=== PATIENT | male | born 1990 | race Caucasian/White ===

== ENCOUNTER 2024-04-16 10:00 | Inpatient (IN) | payer OTHER ==
--- NOTE | 2024-04-16 10:14 | ED ---
Extremity Problem HPI - General Source: patient, RN notes reviewed Mode of arrival: wheelchair Limitations: no limitations <Tia Jo - Last Filed: 04/16/24 10:16> <Kailee Schuler - Last Filed: 04/16/24 23:23> - General Chief complaint: Extremity Problem,Nontraumatic Stated complaint: R knee infection Time Seen by Provider: 04/16/24 10:12 - History of Present Illness Initial comments: Quick Note: This is a 33-year-old male who presents to the emergency department for a right knee infection. States that this started last week. He went to [facility] initially on 04/08 and was started on oral antibiotics. This did not improve and he went back on 04/12. He was admitted for IV antibiotics and had surgery on the knee. However, states that he did not like how they cared for him at [facility] and he left. States that the infection was positive for MRSA. Pain is continuing to get worse and he is hoping to be treated at this facility instead. (Tia Jo) Rich is a 33yo M with history of IV drug use who presents to the ER via private vehicle for evaluation of wound to the right knee. Patient was seen at [facility] last week and given PO antibiotics, infection worsened and he was readmitted, on 04/13 he underwent debridement and reports that he remained in the hospital for 16+ hours after the procedure but did not receive any pain medications or antibiotics so he left. Patient came to our hospital today for continued treatment, does not recall who the surgeon was that did the debridement but was told the infection is MRSA Outpatient chart reveals that the patient had surgical debridement by vascular surgeon Dr. Luna who recommended PICC line placement for long-term antibiotics. (Kailee Schuler) - Related Data Home Medications Medication Instructions Recorded Confirmed No Known Home Medications 04/16/24 04/16/24 Allergies Allergy/AdvReac Type Severity Reaction Status Date / Time Penicillins AdvReac Nausea & Verified 04/16/24 18:46 Vomiting Review of Systems ROS Other: All systems not noted in ROS Statement are negative. <Tia Jo - Last Filed: 04/16/24 10:16> ROS Other: All systems not noted in ROS Statement are negative. <Kailee Schuler - Last Filed: 04/16/24 23:23> ROS Statement: Those systems with pertinent positive or pertinent negative responses have been documented in the HPI. General Exam <Tia Jo - Last Filed: 04/16/24 10:16> <Kailee Schuler - Last Filed: 04/16/24 23:23> - General Exam Comments Initial Comments: Visual Physical Exam Vital signs reviewed General: Well-appearing, nontoxic, no acute distress. Head: Normocephalic, atraumatic Eyes: PERRLA, EOMI ENT: Airway patent Chest: Nonlabored breathing Skin: No visual rash, normal skin tone Neuro: Alert and oriented 3 Musculoskeletal: No gross abnormalities (Tia Jo) Physical Exam GENERAL: Patient is well-developed and well-nourished. Patient is nontoxic and well-hydrated and is in no distress. HENT: Normocephalic, Atraumatic. EYES: PERRL, EOMI PULMONARY: Unlabored respirations. CARDIOVASCULAR: RRR Warm and well perfused extremities ABDOMEN: Non-distended SKIN: There is a large open wound proximal and lateral to the patella no significant surrounding erythema induration or signs of cellulitis : Deferred NEUROLOGIC: Alert and oriented Normal speech MUSCULOSKELETAL: Moving all extremities with no apparent injury PSYCHIATRIC: No SI/HI (Kailee Schuler) Course Vital Signs 04/16/24 04/16/24 10:12 18:40 Temperature 98.1 F Pulse Rate 85 79 Respiratory 18 18 Rate Blood Pressure 119/75 111/67 O2 Sat by Pulse 99 95 Oximetry Medical Decision Making <Tia Jo - Last Filed: 04/16/24 10:16> - Lab Data Result diagrams: 04/16/24 10:52 04/16/24 10:52 <Kailee Schuler - Last Filed: 04/16/24 23:23> - Medical Decision Making I performed the QuickNote portion of this chart. Signed Tia Jo PA-C. (Tia Jo) Was pt. sent in by a medical professional or institution (SHALINI Bai, DELIVERY LEAD, urgent care, hospital, or alf...) When possible be specific @ -No Did you speak to anyone other than the patient for history (EMS, parent, family, police, friend...)? What history was obtained from this source @ -No Did you review nursing and triage notes (agree or disagree)? Why? @ -I reviewed and agree with nursing and triage notes Were old charts reviewed (outside hosp., previous admission, EMS record, old EKG, old radiological studies, urgent care reports/EKG's, alf records)? Report findings @ -Notes from patient's previous hospitalization were reviewed Differential Diagnosis (chest pain, altered mental status, abdominal pain women, abdominal pain men, vaginal bleeding, weakness, fever, dyspnea, syncope, headache, dizziness, GI bleed, back pain, seizure, CVA, palpatations, mental he alth)? @ -Not applicable EKG interpreted by me (3pts min.). @ -As above X-rays interpreted by me (1pt min.). @ -None done CT interpreted by me (1pt min.). @ -None done U/S interpreted by me (1pt. min.). @ -None done What testing was considered but not performed or refused? (CT, X-rays, U/S, la bs)? Why? @ -None What meds were considered but not given or refused? Why? @ -None Did you discuss the management of the patient with other professionals (professionals i.e. , PA, DELIVERY LEAD, lab, RT, psych nurse, nursing home social worker, rail splitter, teacher, ground nuclear weapons assembly officer, case assembler)? Give summary @ -No Was smoking cessation discussed for >3mins.? @ -No Was critical care preformed (if so, how long)? @ -No Were there social determinants of health that impacted care today? How? (Homelessness, low income, unemployed, alcoholism, drug addiction, transportation, low edu. Level, literacy, decrease access to med. care, penitentiary, rehab)? @ -Substance abuse Was there de-escalation of care discussed even if they declined (Discuss DNR or withdrawal of care, Hospice)? DNR status @ -No What co-morbidities impacted this encounter? (DM, HTN, Smoking, COPD, CAD, Cancer, CVA, ARF, Chemo, Hep., AIDS, mental health diagnosis, sleep apnea, morbid obesity)? @ -None Was patient admitted / discharged? Hospital course, mention meds given and route, prescriptions, significant lab abnormalities, going to OR and other p ertinent info. @ -Admit Patient was seen and evaluated history is obtained from patient and from chart obtained from outside hospital. Plan of care was PICC line placement and long- term antibiotics. Patient is uncertain if he would consent to a PICC line wants to be admitted for pain management and repeat surgical evaluation. Patient is agreeable to IV and IV antibiotics here in the ER. These were ordered. Patient was admitted with a consult to vascular surgery who did his previous debrid ement. Undiagnosed new problem with uncertain prognosis? @ -No Drug Therapy requiring intensive monitoring for toxicity (Heparin, Nitro, Insulin, Cardizem)? @ -No Were any procedures done? @ -No Diagnosis/symptom? @ -MRSA infection of the left leg Acute, or Chronic, or Acute on Chronic? @ -Default Uncomplicated (without systemic symptoms) or Complicated (systemic symptoms)? @ -Default Side effects of treatment? @ -No Exacerbation, Progression, or Severe Exacerbation? @ -No Poses a threat to life or bodily function? How? (Chest pain, [place], [place], pneumonia, PE, COPD, DKA, ARF, appy, cholecystitis, CVA, Diverticulitis, Homicidal, Suicidal, threat to staff... and all critical care pts) @ -High risk of developing septic joint or osteomyelitis which could be limb threatening (Kailee Schuler) - Lab Data Lab Results 04/16/24 04/16/24 04/16/24 Range/Units 10:52 10:52 10:52 WBC 6.5 (3.8-10.6) k/uL RBC 4.94 (4.30-5.90) m/uL Hgb 14.9 (13.0-17.5) gm/dL Hct 46.0 (39.0-53.0) % MCV 93.1 (80.0-100.0) fL MCH 30.1 (25.0-35.0) pg MCHC 32.4 (31.0-37.0) g/dL RDW 11.8 (11.5-15.5) % Plt Count 179 (150-450) k/uL MPV 9.0 Neutrophils % 58 % Lymphocytes % 34 % Monocytes % 4 % Eosinophils % 3 % Basophils % 1 % Neutrophils # 3.7 (1.3-7.7) k/uL Lymphocytes # 2.2 (1.0-4.8) k/uL Monocytes # 0.3 (0-1.0) k/uL Eosinophils # 0.2 (0-0.7) k/uL Basophils # 0.0 (0-0.2) k/uL ESR 27 H (0-15) mm/Hr Sodium 141 (137-145) mmol/L Potassium 4.3 (3.5-5.1) mmol/L Chloride 104 (98-107) mmol/L Carbon Dioxide 26 (22-30) mmol/L Anion Gap 11 mmol/L BUN 21 H (9-20) mg/dL Creatinine 0.75 (0.66-1.25) mg/dL Est GFR (CKD-EPI)AfAm >90 (>60 ml/min/1.73 sqM) Est GFR (CKD-EPI)NonAf >90 (>60 ml/min/1.73 sqM) Glucose 88 (74-99) mg/dL Plasma Lactic Acid Bernardo 1.6 (0.7-2.0) mmol/L Calcium 9.7 (8.4-10.2) mg/dL Total Bilirubin 0.8 (0.2-1.3) mg/dL AST 52 (17-59) U/L ALT 86 H (4-49) U/L Alkaline Phosphatase 57 (38-126) U/L C-Reactive Protein 0.9 (<1.0) mg/dL Total Protein 8.3 H (6.3-8.2) g/dL Albumin 4.9 (3.5-5.0) g/dL Disposition <Tia Jo - Last Filed: 04/16/24 10:16> <Kailee Schuler - Last Filed: 04/16/24 23:23> Clinical Impression: MRSA (methicillin resistant Staphylococcus aureus) infection Disposition: ADMITTED IP TO THIS HOSP Condition: Serious
--- NOTE | 2024-04-16 10:36 | XR ---
EXAMINATION TYPE: XR knee complete RT DATE OF EXAM: 04/16/2024 CLINICAL HISTORY: pain TECHNIQUE: Three views of the right knee are obtained. COMPARISON: None. FINDINGS: There is no acute fracture/dislocation. The tri-compartment joint spaces appear within no rmal limits. The overlying soft tissue appears unremarkable. IMPRESSION: There is no acute fracture or dislocation.ICD 10 NO FRACTURE, INITIAL EVALUATION
[2024-04-16 13:39] LABS: Basophils % (A) 1 %; Eosinophils # (A) 0.2 k/uL (0-0.7); Eosinophils % (A) 3 %; HGB 14.9 gm/dL (13.0-17.5); Lymphocytes # (A) 2.2 k/uL (1.0-4.8); Lymphocytes % (A) 34 %; MCH 30.1 pg (25.0-35.0); MCHC 32.4 g/dL (31.0-37.0); MCV 93.1 fL (80.0-100.0); Monocytes # (A) 0.3 k/uL (0-1.0); Monocytes % (A) 4 %; Neutrophils # (A) 3.7 k/uL (1.3-7.7); Neutrophils % (A) 58 %; Platelet Count 179 k/uL (150-450); RBC 4.94 m/uL (4.30-5.90); RDW 11.8 % (11.5-15.5); WBC 6.5 k/uL (3.8-10.6)
[2024-04-16 13:59] LABS: ALT 86 U/L (4-49); AST 52 U/L (17-59); African American GFR (CKD) >90 (>60 ml/min/1.73 sqM); Albumin 4.9 g/dL (3.5-5.0); Alkaline Phosphatase 57 U/L (38-126); Anion Gap 11 mmol/L; Blood Urea Nitrogen 21 mg/dL (9-20); C Reactive Protein 0.9 mg/dL (<1.0); Calcium 9.7 mg/dL (8.4-10.2); Carbon Dioxide 26 mmol/L (22-30); Chloride 104 mmol/L (98-107); Glucose 88 mg/dL (74-99); Non-African American GFR(CKD) >90 (>60 ml/min/1.73 sqM); Potassium 4.3 mmol/L (3.5-5.1); Sodium 141 mmol/L (137-145); Total Bilirubin 0.8 mg/dL (0.2-1.3); Total Protein 8.3 g/dL (6.3-8.2)
[2024-04-16] MEDS ORDERED: VANCOMYCIN IV PER PHARMACY 1 EACH MISC MISCELLANE PRN (16:43)
[2024-04-16] MEDS: VANCOMYCIN 1,500 MG in SODIUM CHLORIDE 0.9% 500 ML 500 ML IVPB SCH (18:22)
[2024-04-16] MEDS: MORPHINE SULFATE 4 MG/ML SYRINGE IVP STA (18:32)
[2024-04-16 18:44] LABS: Erythrocyte Sedimentation Rate 27 mm/Hr (0-15)
[2024-04-16] MEDS ORDERED: NALOXONE 0.4 MG/ML 1 ML VIAL IV PRN (19:53)
[2024-04-17] MEDS: MORPHINE SULFATE 4 MG/ML SYRINGE IV PRN (02:50)
[2024-04-17] MEDS: HYDROmorphone 1 MG/ML 1 ML SYRINGE IVP STA (05:17)
[2024-04-17 10:34] LABS: African American GFR (CKD) >90 (>60 ml/min/1.73 sqM); Non-African American GFR(CKD) >90 (>60 ml/min/1.73 sqM)
[2024-04-17 11:53] LABS: Anion Gap 7 mmol/L; Blood Urea Nitrogen 16 mg/dL (9-20); Calcium 9.5 mg/dL (8.4-10.2); Carbon Dioxide 27 mmol/L (22-30); Chloride 103 mmol/L (98-107); Glucose 96 mg/dL (74-99); Potassium 4.5 mmol/L (3.5-5.1); Sodium 137 mmol/L (137-145)
--- NOTE | 2024-04-17 13:45 | P.GSCN ---
History of Present Illness Consult date: 04/17/24 Reason for Consult: Wound care Requesting physician: Kailee Hawkins History of present illness: This is a 33-year-old male who presented to the emergency department with complaints of right knee wound which he states he has had for 1 to 2 weeks. Patient has a history of heroin IV drug use and states last use was a year ago. He states it started out as like a pimple or ingrown hair and progressively got worse. He had gone to [facility] and states that he had surgical debridement on 04/12/[address] Luna. He had not followed with anyone since. He came back to the emergency department because of the pain and difficulty walking. Patient states he has been staying in the [facility], but wants to return home to the [place] area. States he has a history of a very similar wound on his left knee which she states occurred the same way and he had MRSA and a significant wound needing wound care. States he did have positive cultures at [facility] and was positive for MRSA. States he was on some oral antibiotics. He denies any fevers or chills. No nausea or vomiting. Review of Systems A 14 point review systems was completed all pertinent positives and negatives as stated in the HPI. Past Medical History Past Medical History: No Reported History History of Any Multi-Drug Resistant Organisms: MRSA Additional Past Surgical History / Comment(s): right knee I/D (2023) Past Psychological History: No Psychological Hx Reported Smoking Status: Current every day smoker, Vaper Past Alcohol Use History: None Reported Past Drug Use History: None Reported Medications and Allergies Home Medications Medication Instructions Recorded Confirmed Type No Known Home Medications 04/16/24 04/16/24 History Allergies Allergy/AdvReac Type Severity Reaction Status Date / Time Penicillins AdvReac Nausea & Verified 04/16/24 18:46 Vomiting Surgical - Exam Vital Signs Temp Pulse Resp BP Pulse Ox 98.1 F 85 18 119/75 99 04/16/24 10:12 04/16/24 10:12 04/16/24 10:12 04/16/24 10:12 04/16/24 10:12 General appearance: The patient is alert, oriented, appears in no acute distress. HET: Head is normocephalic and atraumatic. Pupils are equal and reactive. Neck: Supple. Heart: Regular. Lungs: Equal expansion, normal respiratory effort. Abdomen: Soft, nontender, nondistended. Extremities: Right leg with patellar wound with necrotic tissue and clot noted. Area around Wound and previously marked with improved redness. Palpable DP pulse. Neurological: No focal deficits. Strength and sensation are grossly intact. Results - Labs 04/16/24 10:52 04/17/24 09:30 Abnormal Lab Results - Last 24 Hours (Table) 04/16/24 04/16/24 Range/Units 10:52 10:52 ESR 27 H (0-15) mm/Hr BUN 21 H (9-20) mg/dL ALT 86 H (4-49) U/L Total Protein 8.3 H (6.3-8.2) g/dL Diabetes panel 04/16/24 04/17/24 Range/Units 10:52 09:30 Sodium 141 (137-145) mmol/L Potassium 4.3 (3.5-5.1) mmol/L Chloride 104 (98-107) mmol/L Carbon Dioxide 26 (22-30) mmol/L BUN 21 H (9-20) mg/dL Creatinine 0.75 0.75 (0.66-1.25) mg/dL Glucose 88 (74-99) mg/dL Calcium 9.7 (8.4-10.2) mg/dL AST 52 (17-59) U/L ALT 86 H (4-49) U/L Alkaline Phosphatase 57 (38-126) U/L Total Protein 8.3 H (6.3-8.2) g/dL Albumin 4.9 (3.5-5.0) g/dL Calcium panel 04/16/24 Range/Units 10:52 Calcium 9.7 (8.4-10.2) mg/dL Albumin 4.9 (3.5-5.0) g/dL Pituitary panel 04/16/24 04/17/24 Range/Units 10:52 09:30 Sodium 141 (137-145) mmol/L Potassium 4.3 (3.5-5.1) mmol/L Chloride 104 (98-107) mmol/L Carbon Dioxide 26 (22-30) mmol/L BUN 21 H (9-20) mg/dL Creatinine 0.75 0.75 (0.66-1.25) mg/dL Glucose 88 (74-99) mg/dL Calcium 9.7 (8.4-10.2) mg/dL Adrenal panel 04/16/24 04/17/24 Range/Units 10:52 09:30 Sodium 141 (137-145) mmol/L Potassium 4.3 (3.5-5.1) mmol/L Chloride 104 (98-107) mmol/L Carbon Dioxide 26 (22-30) mmol/L BUN 21 H (9-20) mg/dL Creatinine 0.75 0.75 (0.66-1.25) mg/dL Glucose 88 (74-99) mg/dL Calcium 9.7 (8.4-10.2) mg/dL Total Bilirubin 0.8 (0.2-1.3) mg/dL AST 52 (17-59) U/L ALT 86 H (4-49) U/L Alkaline Phosphatase 57 (38-126) U/L Total Protein 8.3 H (6.3-8.2) g/dL Albumin 4.9 (3.5-5.0) g/dL - Imaging Comments: Knee x-ray reports no acute fracture or dislocation Assessment and Plan Assessment: 1. Right lower extremity wound with reported MRSA 2. Right lower extremity cellulitis 3. History IV drug use Plan: Recommend to patient surgical washout and excisional debridement in the operating room. Patient reports he is hesitant to have any further surgical procedures done as he prefers to have it done closer to home. He resides in the [facility]. Infectious disease has been consulted and patient is willing to see what their recommendations are. Patient is tentatively scheduled for right lower extremity wound washout and debridement today. Keep NPO. Obtain urine drug screen. Antibiotics per recommendations from infectious disease. Obviously if patient does not want to have procedure done here he certainly could go closer to home be evaluated and treated there. We did discuss with patient risk for further infection into bloodstream, worsening wound causing p ossible sepsis and/or loss of limb if wound care not obtained. Patient does verbalize understanding. Thank you for this consultation. The impression and plan of care has been dictated as directed. Dr. Sin I performed a history and examination of this patient, discussed the same with the dictator. I agree with the dictator's note ,documented as a scribe. Any additional findings or plans will be noted.
--- NOTE | 2024-04-17 13:54 | P.HPIM ---
History of Present Illness H&P Date: 04/17/24 History of present illness; 33-year-old man presents to the emergency department following diagnosis for MRSA infection in his right knee. While the patient has a history of IV drug use, he states he has not used IV drugs in more than 5 years, stating this infection began as result of an ingrown hair on the lateral aspect of his right knee. He states the infection developed almost identically to a similar infection he had on his left knee 1-2 years ago. Similarly at that time the infection was found to be a MRSA infection. He went to [facility] initially on 04/08 where she was given oral antibiotics. Patient states that this did not improve any of his symptoms, and returned on 04/13 when he underwent a debridement with vascular surgeon Dr. Luna, however patient states after the surgery he was in that facility for 16+ hours and had not received any pain medication or antibiotics so he left. At that time Dr. Luna recommended a PICC line for placement for long-term antibiotic. Following leaving the [facility], patient arrived at our facility for continued treatment after increase in pain and more difficulty walking. Following his arrival at this facility, patient was started on 1500 mg vancomycin IV and 1000 mg cefazolin IV. Patient has remained afebrile, blood pressure currently 124/82, while saturating 100% on room air. Patient states his desire would be to be converted to oral antibiotics and discharged home if possible where he will later follow-up with wound care if needed. Initial lab work done in the ER showed an unremarkable CBC, showing an ESR of 27, unremarkable CMP except for a BUN of 21, ALT of 86, total protein of 8.3. X-ray of the knee done in the ER showed there is no acute fracture or dislocation. The tricompartment joint spaces appear within normal limits. Patient admitted to internal medicine service REVIEW OF SYSTEMS: CONSTITUTIONAL: No fever, no malaise, no fatigue. HEENT: No recent visual problems or hearing problems. Denied any sore throat. CARDIOVASCULAR: No chest pain, orthopnea, PND, no palpitations, no syncope. PULMONARY: No shortness of breath, no cough, no hemoptysis. GASTROINTESTINAL: No diarrhea, no nausea, no vomiting, no abdominal pain. NEUROLOGICAL: No headaches, no weakness, no numbness. HEMATOLOGICAL: Denies any bleeding or petechiae. GENITOURINARY: Denies any burning micturition, frequency, or urgency. MUSCULOSKELETAL/RHEUMATOLOGICAL: Denies any joint pain, swelling, or any muscle pain. ENDOCRINE: Denies any polyuria or polydipsia. The rest of the 14-point review of systems is negative. PHYSICAL EXAMINATION: GENERAL: The patient is alert and oriented x3, not in any acute distress. Well developed, well nourished. HEENT: Pupils are round and equally reacting to light. EOMI. No scleral icterus. No conjunctival pallor. Normocephalic, atraumatic. No pharyngeal erythema. No thyromegaly. CARDIOVASCULAR: S1 and S2 present. No murmurs, rubs, or gallops. PULMONARY: Chest is clear to auscultation, no wheezing or crackles. ABDOMEN: Soft, nontender, nondistended, normoactive bowel sounds. No palpable organomegaly. MUSCULOSKELETAL: No joint swelling or deformity. Notable bandage wrapped around his right knee where he states the open wound is on the lateral aspect next to his right patella. EXTREMITIES: No cyanosis, clubbing, or pedal edema. NEUROLOGICAL: Gross neurological examination did not reveal any focal deficits. SKIN: Large, open wound proximal and lateral to the patella without significant surrounding erythema, induration or signs of cellulitis. Assessment and plan 33-year-old man with past medical history significant for IV drug use, presents to our facility following diagnosis of a MRSA infection and skin debridement on 04/13 at [facility]. Patient has not used IV drugs in > 5 years, states this infection began with an ingrown hair on the lateral aspect of his knee. Patient presents to us for continued treatment with IV antibiotics and for pain control. #MRSA cellulitis around the right knee likely secondary to an ingrown hair Tissue culture completed the current medical revealed MRSA infection Patient currently on vancomycin IV and cefazolin IV any alterations are pending infectious disease recommendation Possible surgical debridement during his stay, however if not patient expressed understanding and importance of following up closer to home Awaiting further recommendation from infectious disease on potential for oral antibiotic and discharge #History of IV drug use Patient states he used to be an IV drug user Patient states he has not used in over 5 years Continue to monitor vital signs, monitor CBC, monitor CMP, continue telemetry monitoring Discussed with the patient the risks associated with not taking care of an infection like this. The risk of the infection entering the bloodstream followed by sepsis and/or potential limb loss. Patient expressed understanding. Dictation was produced using [employer] dictation software. please excuse any grammatical, word or spelling errors. Past Medical History Past Medical History: No Reported History History of Any Multi-Drug Resistant Organisms: MRSA Additional Past Surgical History / Comment(s): right knee I/D (2023) Past Psychological History: No Psychological Hx Reported Smoking Status: Current every day smoker, Vaper Past Alcohol Use History: None Reported Past Drug Use History: None Reported Medications and Allergies Home Medications Medication Instructions Recorded Confirmed Type No Known Home Medications 04/16/24 04/16/24 History Allergies Allergy/AdvReac Type Severity Reaction Status Date / Time Penicillins AdvReac Nausea & Verified 04/16/24 18:46 Vomiting Physical Exam Vitals: Vital Signs Temp Pulse Resp BP Pulse Ox 04/17/24 05:20 98.7 F 74 15 124/82 100 04/17/24 02:00 97.1 F L 59 L 18 118/71 97 04/16/24 18:40 79 18 111/67 95 04/16/24 10:12 98.1 F 85 18 119/75 99 Results CBC & Chem 7: 04/16/24 10:52 04/17/24 09:30 Labs: Abnormal Lab Results - Last 24 Hours (Table) 04/16/24 04/16/24 Range/Units 10:52 10:52 ESR 27 H (0-15) mm/Hr BUN 21 H (9-20) mg/dL ALT 86 H (4-49) U/L Total Protein 8.3 H (6.3-8.2) g/dL
[2024-04-17] MEDS: HEPARIN SODIUM,PORCINE 5,000 UNIT/ML 1 ML VIAL SQ SCH (15:27)
[2024-04-17 17:08] LABS: Basophils # (A) 0.03 X 10*3/uL (0.00-0.10); Basophils % (A) 0.6 %; Eosinophils # (A) 0.17 X 10*3/uL (0.04-0.35); Eosinophils % (A) 3.2 %; HCT 44.8 % (39.6-50.0); HGB 14.9 g/dL (13.0-17.0); Lymphocytes # (A) 1.14 X 10*3/uL (0.90-5.00); Lymphocytes % (A) 21.6 %; MCH 31.6 pg (27.0-32.0); MCHC 33.3 g/dL (32.0-37.0); MCV 94.9 FL (80.0-97.0); Mean Platelet Volume 11.5 FL (9.5-12.2); Monocytes # (A) 0.37 X 10*3/uL (0.20-1.00); NRBC Per 100 WBC 0 X 10*3/uL (0.00-0.01); Neutrophils # (A) 3.47 X 10*3/uL (1.80-7.70); Neutrophils % (A) 65.7 %; Platelet Count 183 X 10*3/uL (140-440); RBC 4.72 X 10*6/uL (4.40-5.60); RDW 11.6 % (11.5-14.5); WBC 5.28 X 10*3/uL (4.50-10.00)
--- NOTE | 2024-04-17 23:00 | PN ---
PROGRESS NOTE This is a 33-year-old gentleman who came to the emergency room today. This patient was seen by me on the at [facility], we did the debridement and deep culture and patient was put on antibiotic on the . The patient left against medical advise. The patient came to [facility] this and I was called again by the ER physician that patient has a wound on his right knee. I came to the room. I talked with the patient and I advised him you left against medical advice, do you have anything against me, he said no, not at all. The patient has a past history of drug abuse in the past. While I wanted to change the dressing, we put some saline and he started screaming and yelling that he has excruciating pain and he told me I can leave the room. I discussed with the hospitalist, Dr. Ferguson. I told him that you have to arrange for some other surgeon and he said do not worry, we will take care of that. MMROE / MATEO: [id number] /
[2024-04-18 02:27] LABS: Urine Alcohol Negative (Negative)
[2024-04-18 02:28] LABS: Urine Barbiturate Negative (Negative); Urine Cocaine Negative (Negative); Urine Methadone Negative (Negative); Urine Opiates Positive (Negative); Urine Phencyclidine Negative (Negative)
--- NOTE | 2024-04-18 07:02 | P.PN ---
Progress Note - Text Progress Note Date: 04/18/24 Patient indicates he does not wish to have any surgical intervention at this facility, preferring to undergo additional therapy closer to his home. Will sign off, will reevaluate at your request.
--- NOTE | 2024-04-18 07:34 | P.CONS ---
History of Present Illness - Reason for Consult Consult date: 04/17/24 MRSA right knee Requesting physician: Yohannes Acuña - Chief Complaint Right knee area pain and swelling and wound x days - History of Present Illness Patient is a 33-year-old man with a past medical history significant for IV drug use has developed an infection to the right knee area on the lateral side the patient mention started as a ingrowing hair has become bigger in size about a week ago for the patient was admitted at [facility] and t he patient was discharged on oral clindamycin patient did not have any improvement subsequently went back to the same ER on 04/13/2024 and the patient did have debridement of the wound done by vascular surgeon patient subsequently left from [facility] AGAINST MEDICAL ADVICE as apparently patient has not received any pain medication and presented to the [facility] for further care patient denies having fever or any chills has been complaining of pain to the right lateral knee area mostly dull aching mild to moderate intensity without any radiation with associated swelling but no foul-smelling drainage on presentation to the hospital patient was afebrile patient was not tachycardic hypotensive or hypoxic patient did have white count of 6.5 creatinine 0.75 ALT is elevated urine drug screen positive for opiates patient was started on cefazolin and vancomycin infectious disease was consulted for further management of antibiotic therapy patient currently has been insisting on going home as he is from the [facility] and just want to be discharged on oral antibiotics Review of Systems Positive point and negatives has been mentioned in the HPI, complete review of systems was performed and all other systems are negative Past Medical History Past Medical History: No Reported History History of Any Multi-Drug Resistant Organisms: MRSA Additional Past Surgical History / Comment(s): right knee I/D (2023) Past Psychological History: No Psychological Hx Reported Smoking Status: Current every day smoker, Vaper Past Alcohol Use History: None Reported Past Drug Use History: None Reported Medications and Allergies Home Medications Medication Instructions Recorded Confirmed Type No Known Home Medications 04/16/24 04/16/24 History Allergies Allergy/AdvReac Type Severity Reaction Status Date / Time Penicillins AdvReac Nausea & Verified 04/16/24 18:46 Vomiting Physical Exam Vitals: Vital Signs Temp Pulse Resp BP Pulse Ox 04/17/24 05:20 98.7 F 74 15 124/82 100 04/17/24 02:00 97.1 F L 59 L 18 118/71 97 04/16/24 18:40 79 18 111/67 95 GENERAL DESCRIPTION: Middle-aged male lying in bed, no distress. No tachypnea or accessory muscle of respiration use. HEENT: Shows Pallor , no scleral icterus. Oral mucous membrane is dry. No pharyngeal erythema or thrush NECK: Trachea central, no thyromegaly. LUNGS: Unlabored breathing. Clear to auscultation anteriorly. No wheeze or crackle. HEART: S1, S2, regular rate and rhythm. No loud murmur ABDOMEN: Soft, no tenderness , guarding or rigidity, no organomegaly EXTREMITIES: Right lateral knee area did have a wound with some necrotic changes minimal swelling no significant redness or foul-smelling drainage SKIN: No rash, no masses palpable. NEUROLOGICAL: The patient is awake, alert, oriented x3, mood and affect normal. Results CBC & Chem 7: 04/17/24 09:30 04/18/24 08:16 Labs: Abnormal Lab Results - Last 24 Hours (Table) 04/16/24 04/16/24 Range/Units 10:52 10:52 ESR 27 H (0-15) mm/Hr BUN 21 H (9-20) mg/dL ALT 86 H (4-49) U/L Total Protein 8.3 H (6.3-8.2) g/dL Assessment and Plan (1) Unspecified open wound, right knee, initial encounter Current Visit: Yes Status: Acute Code(s): S81.001A - UNSPECIFIED OPEN WOUND, RIGHT KNEE, INITIAL ENCOUNTER SNOMED Code(s): 79082930810978842 (2) Cellulitis of right knee Current Visit: Yes Status: Acute Code(s): L03.115 - CELLULITIS OF RIGHT LOWER LIMB SNOMED Code(s): 93922093177884252 (3) MRSA (methicillin resistant Staphylococcus aureus) infection Current Visit: Yes Status: Acute Code(s): A49.02 - METHICILLIN RESIS STAPH INFECTION, UNSP SITE SNOMED Code(s): 946161628 (4) Penicillin allergy Current Visit: Yes Status: Acute Code(s): Z88.0 - ALLERGY STATUS TO PENICILLIN SNOMED Code(s): 88020171 Plan: 1patient presented to hospital with pain and swelling and wound to the right knee area as results of drainage of the abscess from the right lateral knee that was done ascending colon on 04/13/2024 and culture positive for MRSA patient still has necrotic area to the right lateral knee area and will benefit from surgical debridement to help heal this infection unfortunately patient is refusing that can lead to further worsening infection and possible extension down to the knee. 2we will recommend continuation of IV vancomycin for the 24 to 48-hour however the patient continued to refuse any further IV treatment may be able to discharge on Bactrim DS 1 twice daily however the patient has to follow-up with the physician close to home as soon as he reaches the this has been discussed with the admitting team resident physician. We will follow on clinical condition and cultures to further adjust medication if needed Thank you for this consultation we will follow the patient along with you Dictation was produced using [employer] dictation software. please excuse any grammatical, word or spelling errors. Time with Patient: Greater than 30
[2024-04-18 09:15] LABS: African American GFR (CKD) >90 (>60 ml/min/1.73 sqM); Non-African American GFR(CKD) >90 (>60 ml/min/1.73 sqM)
[2024-04-18] MEDS: VANCOMYCIN TROUGH DUE 1 EACH MISC MISCELLANE ONE (11:16)
--- NOTE | 2024-04-18 11:51 | P.PN ---
Subjective Progress Note Date: 04/18/24 33-year-old man presents to the emergency department following diagnosis for MRSA infection in his right knee. While the patient has a history of IV drug use, he states he has not used IV drugs in more than 5 years, stating this infection began as result of an ingrown hair on the lateral aspect of his right knee. He states the infection developed almost identically to a similar infection he had on his left knee 1-2 years ago. Similarly at that time the infection was found to be a MRSA infection. He went to [facility] initially on 04/08 where she was given oral antibiotics. Patient states that this did not improve any of his symptoms, and returned on 04/13 when he underwent a debridement with vascular surgeon Dr. Luna, however patient states after the surgery he was in that facility for 16+ hours and had not received any pain medication or antibiotics so he left AGAINST MEDICAL ADVICE. At that time Dr. Luna recommended a PICC line for placement for long-term antibiotic. Following leaving the [facility], patient arrived at our facility for continued treatment after increase in pain and more difficulty walking. Following his arrival at this facility, patient was started on 1500 mg vancomycin IV and 1000 mg cefazolin IV. Patient has remained afebrile, blood pressure currently 124/82, while saturating 100% on room air. Patient states his desire would be to be converted to oral antibiotics and discharged home if possible where he will later follow-up with wound care if needed. Initial lab work done in the ER showed an unremarkable CBC, showing an ESR of 27, unremarkable CMP except for a BUN of 21, ALT of 86, total protein of 8.3. X-ray of the knee done in the ER showed there is no acute fracture or dislocation. The tricompartment joint spaces appear within normal limits. 04/18 - Patient seen at bedside today. Surgery saw the patient earlier this morning regarding possible wound care and changing his dressing, per the nurses report patient refused to have his dressing removed and pictures taken, and denied any surgical intervention at this facility stating will follow-up closer to home. Patient discussed with infectious disease yesterday his desire to be discharged on oral antibiotics, however after discussion he agreed to spend 1 more night receiving IV vancomycin every 8 hours. Patient states through the night IV vancomycin, IV cefazolin was discontinued per infectious disease recommendations. Patient states he feels well, he has no shortness of breath, nausea, vomiting, fevers. He states the only thing he is dealing with now is the pain from the wound, as he states the swelling has continued to go down significantly. When seen today patient was resting comfortably in his bed, states that the pain is still pretty strong however has gotten a little bit better since yesterday. His original intention was to go home today, but with his current situation living at [facility] he had been told that it may be difficult for him to go home to [place] today, and it may not be possible until Saturday. He states that if he is unable to go back to [place] until Saturday, he has no problem remaining in the hospital and continuing his IV antibiotics until that time. REVIEW OF SYSTEMS: CONSTITUTIONAL: No fever, no malaise, no fatigue. HEENT: No recent visual problems or hearing problems. Denied any sore throat. CARDIOVASCULAR: No chest pain, orthopnea, PND, no palpitations, no syncope. PULMONARY: No shortness of breath, no cough, no hemoptysis. GASTROINTESTINAL: No diarrhea, no nausea, no vomiting, no abdominal pain. NEUROLOGICAL: No headaches, no weakness, no numbness. HEMATOLOGICAL: Denies any bleeding or petechiae. GENITOURINARY: Denies any burning micturition, frequency, or urgency. MUSCULOSKELETAL/RHEUMATOLOGICAL: Denies any joint pain, swelling, or any muscle pain. ENDOCRINE: Denies any polyuria or polydipsia. The rest of the 14-point review of systems is negative. PHYSICAL EXAMINATION: GENERAL: The patient is alert and oriented x3, not in any acute distress. Well developed, well nourished. HEENT: Pupils are round and equally reacting to light. EOMI. No scleral icterus. No conjunctival pallor. Normocephalic, atraumatic. No pharyngeal erythema. No thyromegaly. CARDIOVASCULAR: S1 and S2 present. No murmurs, rubs, or gallops. PULMONARY: Chest is clear to auscultation, no wheezing or crackles. ABDOMEN: Soft, nontender, nondistended, normoactive bowel sounds. No palpable organomegaly. MUSCULOSKELETAL: No joint swelling or deformity. Notable bandage wrapped around his right knee where he states the open wound is on the lateral aspect next to his right patella. EXTREMITIES: No cyanosis, clubbing, or pedal edema. NEUROLOGICAL: Gross neurological examination did not reveal any focal deficits. SKIN: Large, open wound proximal and lateral to the patella without significant surrounding erythema, induration or signs of cellulitis. Assessment and plan 33-year-old man with past medical history significant for IV drug use, presents to our facility following diagnosis of a MRSA infection and skin debridement on 04/13 at [facility]. Patient has not used IV drugs in > 5 years, states this infection began with an ingrown hair on the lateral aspect of his knee. Patient presents to us for continued treatment with IV antibiotics and for pain control. #MRSA cellulitis around the right knee likely secondary to an ingrown hair Tissue culture completed the current medical revealed MRSA infection Patient currently on vancomycin IV and cefazolin IV any alterations are pending infectious disease recommendation Possible surgical debridement during his stay, however if not patient expressed understanding and importance of following up closer to home Awaiting further recommendation from infectious disease on potential for oral antibiotic and discharge Patient refuses surgical intervention, and wound care at this facility. Stating he prefers to do it closer to home, which is [facility]. The importance of following up with the wound care and the risks that come with the advancement of his infection have been discussed and the patient states he understands Per infectious disease recommendation, patient has been strongly advised to stay inpatient and receive IV antibiotics. However, if the patient insists on going, infectious disease states the patient will take Bactrim DS twice daily for 10 days. Infectious disease continue to strongly advise remaining inpatient for IV antibiotics. #History of IV drug use Patient states he used to be an IV drug user Patient states he has not used in over 5 years Continue to monitor vital signs, monitor CBC, monitor CMP, continue telemetry monitoring, encourage use of incentive spirometer, continue postoperative antibiotic per protocol, postoperative pain management per primary monitor for excessive sedation. Attestation: I have personally seen and examined the patient with Resident, reviewed the documentation and participated and agree with the assessment and plan as written. Dictation was produced using [employer] dictation software. please excuse any grammatical, word or spelling errors. Objective - Vital Signs Vital signs: Vital Signs Temp 97.5 F L 04/18/24 00:54 Pulse 60 04/18/24 00:54 Resp 16 04/18/24 00:54 BP 117/79 04/18/24 00:54 Pulse Ox 99 04/18/24 00:54 FiO2 Intake & Output 04/17/24 04/18/24 04/18/24 18:59 06:59 18:59 Weight 83.915 kg Other: # Voids 2 - Labs CBC & Chem 7: 04/17/24 09:30 04/18/24 08:16 Labs: Abnormal Lab Results - Last 24 Hours (Table) 04/17/24 04/17/24 Range/Units 09:30 22:18 Immature Gran # 0.10 H (0.00-0.04) X 10*3/uL Urine Opiates Screen Positive A (Negative)
[2024-04-18] MEDS ORDERED: LORATADINE 10 MG TAB PO PRN (14:47)
--- NOTE | 2024-04-18 15:33 | P.PN ---
Subjective Progress Note Date: 04/18/24 Principal diagnosis: Reason for follow-up is right knee wound and MRSA infection Patient is a 33-year-old man with a past medical history significant for IV drug use has developed an infection to the right knee area on the lateral side the patient mention started as a ingrowing hair has become bigger in size subsequent did have drainage of the abscess by Dr. Luna at [facility] for me the patient left AGAINST MEDICAL ADVICE and presented to this facility [facility] for pain and need for antibiotic therapy. On today's evaluation that is 04/17/2024,the patient denies any fever or any chills, patient is breathing comfortably on room air, the patient denies chest pain shortness of breath and no significant cough, patient denies abdominal pain, no nausea vomiting or diarrhea. Patient stated that he has slightly decreased in intensity. Patient did have a creatinine 0.77 Vanco trough is 20.4 Objective - Vital Signs Vital signs: Vital Signs Temp 97.5 F L 04/18/24 00:54 Pulse 60 04/18/24 00:54 Resp 16 04/18/24 00:54 BP 117/79 04/18/24 00:54 Pulse Ox 99 04/18/24 00:54 FiO2 Intake & Output 04/17/24 04/18/24 04/18/24 18:59 06:59 18:59 Weight 83.915 kg Other: # Voids 2 - Exam GENERAL DESCRIPTION: Middle-age male lying in bed in no distress RESPIRATORY SYSTEM: Unlabored breathing , decreased breath sounds at bases HEART: S1 S2 regular rate and rhythm , ABDOMEN: Soft , no tenderness EXTREMITIES: Right knee wound is currently dressed no drainage on the dressing - Labs CBC & Chem 7: 04/17/24 09:30 04/18/24 08:16 Labs: Abnormal Lab Results - Last 24 Hours (Table) 04/17/24 04/17/24 Range/Units 09:30 22:18 Immature Gran # 0.10 H (0.00-0.04) X 10*3/uL Urine Opiates Screen Positive A (Negative) Assessment and Plan (1) Unspecified open wound, right knee, initial encounter Current Visit: Yes Status: Acute Code(s): S81.001A - UNSPECIFIED OPEN WOUND, RIGHT KNEE, INITIAL ENCOUNTER SNOMED Code(s): 12729370208925289 (2) Cellulitis of right knee Current Visit: Yes Status: Acute Code(s): L03.115 - CELLULITIS OF RIGHT LOWER LIMB SNOMED Code(s): 43945763334060574 (3) MRSA (methicillin resistant Staphylococcus aureus) infection Current Visit: Yes Status: Acute Code(s): A49.02 - METHICILLIN RESIS STAPH INFECTION, UNSP SITE SNOMED Code(s): 309314744 (4) Penicillin allergy Current Visit: Yes Status: Acute Code(s): Z88.0 - ALLERGY STATUS TO PENICILLIN SNOMED Code(s): 07691497 Plan: 1patient presented to hospital with pain and swelling and wound to the right knee area as results of drainage of the abscess from the right lateral knee that was done ascending colon on 04/13/2024 and culture positive for MRSA patient still has necrotic area to the right lateral knee area and will benefit from surgical debridement to help heal this infection unfortunately patient is refusing that can lead to further worsening infection and possible extension down to the knee. 2patient apparently was insisting on going home yesterday today he mentioned he wanted to stay for another day or 2 antibiotic which is appropriate continue with vancomycin pharmacy to dose and will reevaluate the patient tomorrow Dictation was produced using [employer] dictation software. please excuse any grammatical, word or spelling errors. Time with Patient: Less than 30
[2024-04-18] MEDS: VANCOMYCIN 1,250 MG in SODIUM CHLORIDE 0.9% 250 ML IVPB SCH (17:43)
--- NOTE | 2024-04-19 14:01 | P.PN ---
Subjective Progress Note Date: 04/19/24 Interval History: 33-year-old man presents to the emergency department following diagnosis for MRSA infection in his right knee. While the patient has a history of IV drug use, he states he has not used IV drugs in more than 5 years, stating this infection began as result of an ingrown hair on the lateral aspect of his right knee. He states the infection developed almost identically to a similar infect ion he had on his left knee 1-2 years ago. Similarly at that time the infection was found to be a MRSA infection. He went to [facility] initially on 04/08 where she was given oral antibiotics. Patient states that this did not improve any of his symptoms, and returned on 04/13 when he underwent a debridement with vascular surgeon Dr. Luna, however patient states after the surgery he was in that facility for 16+ hours and had not received any pain medication or antibiotics so he left AGAINST MEDICAL ADVICE. At that time Dr. Luna recommended a PICC line for placement for long-term antibiotic. Following leaving the [facility], patient arrived at our facility for continued treatment after increase in pain and more difficulty walking. Following his arrival at this facility, patient was started on 1500 mg vancomycin IV and 1000 mg cefazolin IV. Patient has remained afebrile, blood pressure currently 124/82, while saturating 100% on room air. Patient states his desire would be to be converted to oral antibiotics and discharged home if possible where he will later follow-up with wound care if needed. Initial lab work done in the ER showed an unremarkable CBC, showing an ESR of 27, unremarkable CMP except for a BUN of 21, ALT of 86, total protein of 8.3. X-ray of the knee done in the ER showed there is no acute fracture or dislocation. The tricompartment joint spaces appear within normal limits. 04/18 - Patient seen at bedside today. Surgery saw the patient earlier this morning regarding possible wound care and changing his dressing, per the nurses report patient refused to have his dressing removed and pictures taken, and denied any surgical intervention at this facility stating will follow-up closer to home. Patient discussed with infectious disease yesterday his desire to be discharged on oral antibiotics, however after discussion he agreed to spend 1 more night receiving IV vancomycin every 8 hours. Patient states through the night IV vancomycin, IV cefazolin was discontinued per infectious disease recommendations. Patient states he feels well, he has no shortness of breath, nausea, vomiting, fevers. He states the only thing he is dealing with now is the pain from the wound, as he states the swelling has continued to go down significantly. When seen today patient was resting comfortably in his bed, states that the pain is still pretty strong however has gotten a little bit better since yesterday. His original intention was to go home today, but with his current situation living at [facility] he had been told that it may be difficult for him to go home to [place] today, and it may not be possible until Saturday. He states that if he is unable to go back to [place] until Saturday, he has no problem remaining in the hospital and continuing his IV antibiotics until that time. 04/19/24--patient was seen and examined today. Patient feeling better today. Patient remains on IV vancomycin. Infectious disease following. Patient remained adamant to be discharged, agreeable to stay till tomorrow Assessment and plan: #MRSA cellulitis around the right knee likely secondary to an ingrown hair Tissue culture completed the current medical revealed MRSA infection Patient currently on vancomycin IV and cefazolin IV any alterations are pending infectious disease recommendation Possible surgical debridement during his stay, however if not patient expressed understanding and importance of following up closer to home Awaiting further recommendation from infectious disease on potential for oral antibiotic and discharge Patient refuses surgical intervention, and wound care at this facility. Stating he prefers to do it closer to home, which is [facility]. The importance of following up with the wound care and the risks that come with the advancement of his infection have been discussed and the patient states he understands Per infectious disease recommendation, patient has been strongly advised to stay inpatient and receive IV antibiotics. However, if the patient insists on going, infectious disease states the patient will take Bactrim DS twice daily for 10 days. Infectious disease continue to strongly advise remaining inpatient for IV antibiotics. #History of IV drug use Patient states he used to be an IV drug user Patient states he has not used in over 5 years Assessment and plan: #MRSA cellulitis around the right knee likely secondary to an ingrown hair Tissue culture completed the current medical revealed MRSA infection Patient currently on vancomycin IV and cefazolin IV any alterations are pending infectious disease recommendation Possible surgical debridement during his stay, however if not patient expressed understanding and importance of following up closer to home Awaiting further recommendation from infectious disease on potential for oral antibiotic and discharge Patient refuses surgical intervention, and wound care at this facility. Stating he prefers to do it closer to home, which is [facility]. The importance of following up with the wound care and the risks that come with the advancement of his infection have been discussed and the patient states he understands Per infectious disease recommendation, patient has been strongly advised to stay inpatient and receive IV antibiotics. However, if the patient insists on going, infectious disease states the patient will take Bactrim DS twice daily for 10 days. Infectious disease continue to strongly advise remaining inpatient for IV antibiotics. #History of IV drug use Patient states he used to be an IV drug user Patient states he has not used in over 5 years PHYSICAL EXAMINATION: GENERAL: The patient is A&O x3, NAD HEENT: EOMI, Sclerae anicteric, Moist Mucous membranes Neck: Supple, Non tender, No JVD CARDIOVASCULAR: S1, S2 present. No murmurs, rubs, or gallops. PULMONARY: Equal breath souds B/L, No wheezing, No crackles. ABDOMEN: Soft, nontender, nondistended, normoactive bowel sounds. No guarding or rebound tenderness. MUSCULOSKELETAL: Right knee dressed. No edema, No cyanosis. No clubbing. Normal ROM. Intact peripheral pulses. Skin; Warm. No rash. REVIEW OF SYSTEMS: CONSTITUTIONAL: No fever or chills. CARDIOVASCULAR: No chest pain, palpitations or syncope. PULMONARY: No shortness of breath, no cough, sore throat. GASTROINTESTINAL: No nausea, vomiting, diarrhea, abdominal pain. : No Dysuria, urgency, frequency. Extremities: No edema. NEUROLOGICAL: No headaches, no weakness, or numbness Dictation was produced using [employer] dictation software. please excuse any grammatical, word or spelling errors. Objective - Vital Signs Vital signs: Vital Signs Temp 97.7 F 04/19/24 07:06 Pulse 66 04/19/24 07:06 Resp 17 04/19/24 07:06 BP 115/76 04/19/24 07:06 Pulse Ox 98 04/19/24 07:06 FiO2 Intake & Output 04/18/24 04/19/24 04/19/24 18:59 06:59 18:59 Output Total 600 Balance -600 Output: Urine 600 Other: # Voids 2 - Labs CBC & Chem 7: 04/17/24 09:30 04/18/24 08:16
--- NOTE | 2024-04-19 15:49 | P.PN ---
Subjective Progress Note Date: 04/19/24 Principal diagnosis: Reason for follow-up is right knee wound and MRSA infection Patient is a 33-year-old man with a past medical history significant for IV drug use has developed an infection to the right knee area on the lateral side the patient mention started as a ingrowing hair has become bigger in size subsequent did have drainage of the abscess by Dr. Luna at [facility] for me the patient left AGAINST MEDICAL ADVICE and presented to this facility [facility] for pain and need for antibiotic therapy. On today's evaluation that is 04/19/2024, the patient continues to be afebrile, the patient is on room air and breathing comfortably, the Pt denies having any chest pain or cough, the patient denies having any abdominal pain no vomiting or any diarrhea still complaining of pain to the right knee area but no further drainage. Patient did have a creatinine 0.77 as of yesterday white count of 20.4 Plan today Objective - Vital Signs Vital signs: Vital Signs Temp 98.8 F 04/19/24 14:22 Pulse 74 04/19/24 14:22 Resp 16 04/19/24 14:22 BP 121/75 04/19/24 14:22 Pulse Ox 98 04/19/24 14:22 FiO2 Intake & Output 04/18/24 04/19/24 04/19/24 18:59 06:59 18:59 Output Total 600 Balance -600 Output: Urine 600 Other: # Voids 2 - Exam GENERAL DESCRIPTION: Middle-age male lying in bed in no distress RESPIRATORY SYSTEM: Unlabored breathing , decreased breath sounds at bases HEART: S1 S2 regular rate and rhythm , ABDOMEN: Soft , no tenderness EXTREMITIES: Right knee wound is currently dressed no drainage on the dressing - Labs CBC & Chem 7: 04/17/24 09:30 04/18/24 08:16 Assessment and Plan (1) Unspecified open wound, right knee, initial encounter Current Visit: Yes Status: Acute Code(s): S81.001A - UNSPECIFIED OPEN WOUND, RIGHT KNEE, INITIAL ENCOUNTER SNOMED Code(s): 96869141244512705 (2) Cellulitis of right knee Current Visit: Yes Status: Acute Code(s): L03.115 - CELLULITIS OF RIGHT LOWER LIMB SNOMED Code(s): 70017921264298828 (3) MRSA (methicillin resistant Staphylococcus aureus) infection Current Visit: Yes Status: Acute Code(s): A49.02 - METHICILLIN RESIS STAPH INFECTION, UNSP SITE SNOMED Code(s): 671327855 (4) Penicillin allergy Current Visit: Yes Status: Acute Code(s): Z88.0 - ALLERGY STATUS TO PENICILLIN SNOMED Code(s): 73174155 Plan: 1patient presented to hospital with pain and swelling and wound to the right knee area as results of drainage of the abscess from the right lateral knee that was done ascending colon on 04/13/2024 and culture positive for MRSA patient still has necrotic area to the right lateral knee area and will benefit from surgical debridement to help heal this infection unfortunately patient is refusing that can lead to further worsening infection and possible extension down to the knee. 2patient to continue with IV vancomycin pharmacy to dose while inpatient transition to Bactrim DS on discharge with instruction to follow-up with the physician and wound care close to his home the moment he reaches there Dictation was produced using [employer] dictation software. please excuse any grammatical, word or spelling errors. Time with Patient: Less than 30
[2024-04-19 17:09] LABS: African American GFR (CKD) >90 (>60 ml/min/1.73 sqM); Non-African American GFR(CKD) >90 (>60 ml/min/1.73 sqM)
[2024-04-19] MEDS: VANCOMYCIN TROUGH DUE 1 EACH MISC MISCELLANE ONE (18:34)
[2024-04-19] MEDS ORDERED: lisinopriL 5 MG TAB PO PRN (19:14)
[2024-04-20 01:15] VITALS: BP 112/73; PULSE 60; RESP 17; TEMP 97.8
[2024-04-20] MEDS: TEMAZEPAM 15 MG CAP PO PRN (02:25)
== END 2024-04-20 09:30 | disposition left against medical advice (07) | DRG 383 ==
LOC: EDSEX → EC 10:00 → 4SSUR 19:55
PROVIDERS: ADMIT Internal Medicine; ATTEND Internal Medicine
DX: L03.115 Cellulitis of right lower limb (principal); F11.11 Opioid abuse, in remission; L73.1 Pseudofolliculitis barbae; F17.290 Nicotine dependence, other tobacco product, uncomplicated; B95.62 Methicillin resistant Staphylococcus aureus infection as the cause of diseases classified elsewhere; Z88.0 Allergy status to penicillin; Z86.14 Personal history of Methicillin resistant Staphylococcus aureus infection; Z28.310 Unvaccinated for COVID-19; Z53.21 Procedure and treatment not carried out due to patient leaving prior to being seen by health care provider; Z53.29 Procedure and treatment not carried out because of patient's decision for other reasons
CPT/HCPCS: 36415; 80048; 80053; 80202; 80306; 82565; 83605; 85025; 85652; 86140; 96365; 96366; 96367; 96375; 96376; 99285